=== PATIENT | male | born 1985 | race Caucasian/White ===

== ENCOUNTER 2017-04-22 03:22 | Emergency (ER) | payer BC ==
[~2017-04-22] VITALS: Ht 175.3 cm; Wt 79.0 kg
[~2017-04-22 03:22] MED LIST: LRT5 PO; MULT-506 PO
[2017-04-22 03:37] VITALS: TEMP 36.4; Ht 175.3 cm; Wt 79.0 kg
[2017-04-22 04:45] VITALS: O2SAT 97
[2017-04-22 05:00] VITALS: PULSE 94
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
[2017-04-22 05:03] VITALS: BP 135/68
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
== END 2017-04-22 05:12 | disposition home or self-care (01) ==
LOC: EDBD 03:22 → C.EDA 03:23
DX: S01.81XA Laceration without foreign body of other part of head, initial encounter (principal); Y04.0XXA Assault by unarmed brawl or fight, initial encounter